=== PATIENT | female | born 1980 | race Caucasian/White ===

== ENCOUNTER 2022-07-22 10:39 | Emergency (ER) | payer BC, SELFPAY ==
--- NOTE | ~2022-07-22 | XR_ITS ---
EXAMINATION: XR foot RT min 3V DATE: 07/22/2022 11:17 INDICATION: Right foot injury. TECHNIQUE: 4 views of right foot were obtained. COMPARISON: None. FINDINGS: Bone alignment normal. No fracture. There is severe osteoarthritis of first metatarsophalan geal joint and mild osteoarthritis of some of the interphalangeal joints.. There is an enthesophyte a t plantar aspect of calcaneal tuberosity. IMPRESSION: 1. 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 Reviewed, dictated and finalized at location A. ERTY UNDERWRITER
--- NOTE | 2022-07-22 10:44 | ED.LOWEXIN ---
HPI - Extremity Injury (Lower) General Chief Complaint: Extremity Injury, Lower Stated Complaint: INJURED R FOOT/ANKLE Time Seen by Provider: 07/22/22 10:43 Source: patient Mode of arrival: ambulatory Limitations: no limitations History of Present Illness HPI Narrative: Shabana is a 42-year-old female patient presenting to clinic today with complaints of right foot/pain. She reports she injured her ankle/foot on July 20 when she was walking on concrete papers and there was a space in between papers and she caught her foot in between 2 pavers and inverted her right foot Related Data Home Medications Medication Instructions Recorded Confirmed olmesartan 40 mg tablet 40 mg PO DAILY 07/22/22 07/22/22 Allergies Allergy/AdvReac Type Severity Reaction Status Date / Time No Known Allergies Allergy Verified 07/22/22 10:53 Review of Systems Review of Systems: Pertinent positives per HPI. Patient denies any fever, chills, rash, headache, visual changes, dizziness, cough, runny nose, sore throat, shortness of breath, chest pain, palpitations, nausea, vomiting, diarrhea, constipation, abdominal pain, or any urinary issues. PMFSH Comments At the time of my signature, I reviewed and agree with the nursing past medical, surgical, social, and family history. There is no relevant family history pertinent to the patient complaint. Exam Narrative: General: Well-developed, well nourished, in no apparent distress Head: Normocephalic, atraumatic. Cardio: Regular rate and rhythm, s1 and s2 normal, no murmur appreciated. Resp: Clear to auscultation bilaterally, no rhonchi, rales, wheezing or rubs. Musculoskeletal: No deformity, tender to palpation over the right lateral foot, grossly normal range of motion, muscle strength strong and equal, peripheral pulse strong, no edema, no cyanosis, normal gait and station Course Course Emergency Course: Portions of this record may have been created with voice recognition software. Level of Care: Express Care Visit Vital Signs Vital signs: Vital Signs Temperature 36.6 C 07/22/22 10:53 Pulse Rate 85 07/22/22 10:53 Respiratory Rate 16 07/22/22 10:53 Blood Pressure 137/88 07/22/22 10:53 Pulse Oximetry 100 07/22/22 10:53 Temperature 36.6 C 07/22/22 10:53 Pulse Rate 85 07/22/22 10:53 Respiratory Rate 16 07/22/22 10:53 Blood Pressure 137/88 07/22/22 10:53 Pulse Oximetry 100 07/22/22 10:53 Vital signs reviewed MDM - Extremity Injury (Lower) MDM Narrative Medical decision making narrative: At the time of visit patient is resting comfortably on the exam table. X-ray was performed of the right foot was negative for any sign of fracture malalignment. I suspect patient has a foot sprain. Supportive measures were discussed with the patient she voiced understanding discharge instructions and agrees to treatment plan. Alexi wrap was given to the patient. Differential Diagnosis Differential diagnosis: Likely other (Foot sprain, foot fracture) Imaging Data Radiologist's impression: [address] [place] [address] XRay Report Signed Patient: Shabana Sanchez : 1980 MR#: [id number] Age/Sex: 42 / F Acct:[id number] Loc: [facility]? ? ADM Date: 07/22/22Attending Dr: Ordering Physician: Martínez Peters APRN Date of Service: 07/22/22 Procedure(s): XR foot RT min 3V Accession Number(s): [id number] cc: Martínez Peters APRN~ EXAMINATION: XR foot RT min 3V DATE: 07/22/2022 11:17 INDICATION: Right foot injury. TECHNIQUE: 4 views of right foot were obtained. COMPARISON: None. FINDINGS: Bone alignment normal. No fracture. There is severe osteoarthritis of first metatarsophalangeal joint and mild osteoarthritis of some of the interphalangeal joints.. There is an enthesophyte at plantar aspect of calcaneal tuberosity. IMPRESSION: 1. Po
[2022-07-22 10:53] VITALS: BP 137/88; PULSE 85; RESP 16; TEMP 36.6; O2SAT 100
== END 2022-07-22 11:36 | disposition home or self-care (01) ==
PROVIDERS: Emergency Provider Nurse Practitioner Family
DX: S93.601A Unspecified sprain of right foot, initial encounter (principal); X50.9XXA Other and unspecified overexertion or strenuous movements or postures, initial encounter; I10 Essential (primary) hypertension; M19.90 Unspecified osteoarthritis, unspecified site
CPT/HCPCS: 73630; 99213; G0463

== ENCOUNTER 2022-08-24 00:52 | Day surgery (SDC) | payer BC, SELFPAY ==
[2022-08-13 12:36] VITALS: BMI 32.7
--- NOTE | 2022-08-23 13:00 | P.PNAN_ITS ---
Anes - Initial Pre Proc Eval Procedure: Operation Date: 08/24/22 10:00 Proposed Procedures p Screening Colonoscopy - Ran Nagy MD Date/Time: 08/23/22 13:00 Surgeon: Ran Nagy MD Pre Op Diagnosis: family hx colon ca Patient Data Age: 42 Gender: F Height: 1.68 m Weight: 92 kg Allergies Allergy/AdvReac Type Severity Reaction Status Date / Time No Known Allergies Allergy Verified 08/24/22 09:06 Home Medications Medication Instructions Recorded Confirmed Type olmesartan 40 mg tablet 40 mg PO DAILY 07/22/22 08/13/22 History fluticasone propionate 50 1 spray intranasal DAILY 08/13/22 08/13/22 History mcg/actuation nasal spray,suspension Patient hx anesthesia problems: none Family hx anesthesia problems: none Results Review: All pre-operative results and documents have been reviewed as part of the pre- operative evaluation. [facility], [facility] Past Medical History Medical History (Updated 08/24/22 @ 09:27 by Ran Nagy MD) Anxiety Hypertension Osteoarthritis Social History Social History Alcohol intake: current Drinks per week: 7 Spiritual care concerns: No Anes - Eval Final PreProcedure Day of Procedure 08/23/22 13:00 Patient weight: obese Heart: regular rate and rhythm Lungs: clear to auscultation Airway: Mallampati scale class II Neurological: alert and oriented Last oral intake: >/= 8 hours ASA classification: III Emergent: no Anesthetic plan: proceed Anesthesia type and monitoring: general GIVS and standard monitoring Results Review: All pre-operative results and documents have been reviewed as part of the pre- operative evaluation. Informed Consent: The patient's anesthetic plan and its attendant risks and benefits were discussed with the patient/family/POA. Questions were solicited and answers provided to the satisfaction of the patient/family/POA.
[2022-08-24 09:07] VITALS: BP 143/100; PULSE 78; RESP 20; TEMP 36.2; O2SAT 99
[2022-08-24] MEDS: LACTATED RINGERS 1,000 ML 150 ML IV CONT (09:21)
--- NOTE | 2022-08-24 09:25 | PM.HPGS ---
History of Present Illness History of Present Illness Consent: Risks, benefits, and alternatives have been discussed and questions answered. Patient agrees to proceed with procedure. Chief complaint: family hx colon ca Narrative: Shabana Sanchez is a 42 year old female Presents for screening colonoscopy. Patient reports that her current weight appetite and bowel movements are normal. Patient denies abdominal pain. She has had no bleeding. Family history is significant that her father has had multiple colon polyps. Her grandfather had colon cancer. Patient presents for initial screening colonoscopy. Review of Systems Review of Systems: Review of systems noncontributory. COUNT INCLUDES THE [facility] Past Medical History Medical History (Updated 08/24/22 @ 09:27 by Ran Nagy MD) Anxiety Hypertension Osteoarthritis Social History Social History Alcohol intake: current Drinks per week: 7 Spiritual care concerns: No Meds Home Medications and Allergies Home Medications Medication Instructions Recorded Confirmed Type olmesartan 40 mg tablet 40 mg PO DAILY 07/22/22 08/13/22 History fluticasone propionate 50 1 spray intranasal DAILY 08/13/22 08/13/22 History mcg/actuation nasal spray,suspension Allergies Allergy/AdvReac Type Severity Reaction Status Date / Time No Known Allergies Allergy Verified 08/24/22 09:06 Vital Signs Vital Signs - 24 hr 08/24/22 09:07 Temperature 97.1 F L Pulse Rate 78 Respiratory Rate 20 Blood Pressure 143/100 H Pulse Oximetry 99 Oxygen Delivery Room Air Exam Narrative: Physical exam reveals patient to be alert. Vital signs stable. HEENT exam is unremarkable. Patient is anicteric. Lungs are clear to auscultation and percussion. Heart is without murmur or extra sounds. Abdomen bowel sounds present soft nontender with no organomegaly. Digital external rectal exam is normal. Assessment and Plan Assessment and plan (1) Family history of colonic polyps: Code(s): Z83.71 - Family history of colonic polyps Status: Acute Assessment and Plan: Patient has a family history of colon polyps in her father and colon cancer in her grandfather. Plan for surveillance colonoscopy now and consider this at 5 year intervals in the future.
[2022-08-24 09:52] VITALS: BP 138/90; PULSE 114; RESP 22; O2SAT 98
[2022-08-24 10:02] VITALS: BP 114/75; PULSE 95; RESP 20; O2SAT 97
[2022-08-24 10:12] VITALS: BP 122/81; PULSE 77; RESP 18; O2SAT 98
== END 2022-08-24 10:29 | disposition home or self-care (01) ==
PROVIDERS: Visit Provider Internal Medicine Gastroenterology
PROC: 0DJD8ZZ Inspection of Lower Intestinal Tract, Via Natural or Artificial Opening Endoscopic (ICD-10-PCS; CPT 45378; principal; 2022-08-24 10:00)
DX: Z12.11 Encounter for screening for malignant neoplasm of colon (principal); Z80.0 Family history of malignant neoplasm of digestive organs; Z83.71 Family history of colonic polyps; I10 Essential (primary) hypertension; E66.9 Obesity, unspecified; Z68.32 Body mass index [BMI] 32.0-32.9, adult
CPT/HCPCS: 45378; J2704; J7120

== ENCOUNTER 2022-09-12 13:58 | Emergency (ER) | payer BC, SELFPAY ==
[2022-09-12] VITALS (18 sets, daily range): BP systolic 124–146; BP diastolic 82–106; PULSE 65–98; RESP 12–19; TEMP 37–37.1; O2SAT 95–100
--- NOTE | ~2022-09-12 | CT_ITS ---
EXAMINATION: CT brain wo con DATE: 09/12/2022 16:35 INDICATION: headache, hypertension . TECHNIQUE: Computed tomography (CT) of the head was performed without intravenous contrast. The mA wa s adjusted according to patient size. Iterative reconstruction technique was employed. The dose-lengt h product was 605.33 mGy-cm. COMPARISON: None. FINDINGS: No acute intracranial hemorrhage or extra-axial fluid collection. No hydrocephalus, mass, or herniation. No acute ischemic infarct. Unremarkable dural venous sinus attenuation. No acute osseous abnormality. The aerated spaces are clear. IMPRESSION: No acute intracranial process. Reviewed, dictated and finalized at location K. ERCIAL STRIPPER
--- NOTE | ~2022-09-12 | XR_ITS ---
EXAMINATION: XR chest 2V 09/12/2022 16:41 INDICATION: Lightheadedness. Hypertension. PROCEDURE: 2 view chest COMPARISON: No prior studies for comparison. FINDINGS: The lungs are clear. The cardiomediastinal silhouette is within normal limits. There are no pleural effusions. There is no pneumothorax suspected. IMPRESSION: 1: NO ACUTE CARDIOPULMONARY DISEASE. Reviewed, dictated and finalized at location B. ANICS HANDYMAN
--- NOTE | 2022-09-12 15:43 | ECG_ITS ---
Measurements Intervals [place] Rate: 75 P: 49 HI: 142 QRS: 37 QRSD: 87 T: 37 QT: 370 QTc: 415 Interpretive Statements SINUS RHYTHM POSSIBLE LEFT ATRIAL ENLARGEMENT [-0.1mV P WAVE IN V1/V2] NONSPECIFIC T-WAVE ABNORMALITY ABNORMAL ECG NO PREVIOUS ECG AVAILABLE FOR COMPARISON Electronically Signed On 09-13-2022 10:02:59 RAMP BOSS by Jacek Palumbo M.D.
[2022-09-12] MEDS: diphenhydrAMINE HCl INJ 50 MG/ML VIAL 25 MG IV PUSH (16:05)
[2022-09-12] MEDS: METOCLOPRAMIDE HCL INJ 10 MG/2 ML VIAL IV PUSH (16:08)
[2022-09-12] MEDS: SODIUM CHLORIDE 0.9% IV 1,000 ML 999 ML IV CONT (16:09)
[2022-09-12 16:21] LABS: Basophils Percent Auto 0.3 % (0.2-1.2); Eosinophils Absolute Auto 0.1 K/mm3 (0-0.3); Eosinophils Percent Auto 0.6 % (0-4.4); Hematocrit 43.1 % (37.0-47.0); Hemoglobin 14.4 g/dL (12.0-15.0); Immature Granulocyte Absolute 0.03 K/mm3 (0.00-0.031); Immature Granulocyte Percent A 0.3 % (0-0.5); Lymphocytes Absolute Auto 2.25 K/mm3 (0.9-3.2); Lymphocytes Percent Auto 22.5 % (18.3-44.2); Mean Corpuscular HGB Conc 33.4 g/dl (32-36); Mean Corpuscular Hemoglobin 29.6 pg (26-34); Mean Corpuscular Volume 88.7 fl (80-100); Mean Platelet Volume 8.4 fl (7.4-10.4); Monocytes Absolute Auto 0.5 K/mm3 (0.1-0.6); Neutrophils Absolute Auto 7.1 K/mm3 (1.3-6.7); Neutrophils Percent Auto 71.3 % (45.5-73.1); Platelet Count Result 334 k/mm3 (150-375); Red Blood Count 4.86 M/mm3 (4.2-5.4); Red Cell Distribution Width 13.1 % (11.5-14.5)
--- NOTE | 2022-09-12 16:21 | ED.HA ---
HPI - Headache General Chief Complaint: Headache Stated Complaint: headache/lightheaded Time Seen by Provider: 09/12/22 15:43 Source: patient Mode of arrival: ambulatory Limitations: no limitations History of Present Illness HPI Narrative: This is a 42 year old female that presents to the ER for lightheadedness today. Reports an associated headache. Reports history of hypertension so she was worried about her heart. Reports she has had some chest pain, but she is currently in the process of moving and the pain is worse with palpation of the area. Denies vision changes, shortness of breath, lower extremity edema, vomiting, numbness, or weakness. Related Data Home Medications Medication Instructions Recorded Confirmed olmesartan 40 mg tablet 40 mg PO DAILY 07/22/22 08/13/22 fluticasone propionate 50 1 spray intranasal DAILY 08/13/22 08/13/22 mcg/actuation nasal spray,suspension Allergies Allergy/AdvReac Type Severity Reaction Status Date / Time No Known Allergies Allergy Verified 08/24/22 09:06 Review of Systems Review of Systems: CONSTITUTIONAL: Denies fever EYES: Denies visual changes CARDIOVASCULAR: Reports chest pain. Denies palpitations, or edema. RESPIRATORY: Denies dyspnea. GASTROINTESTINAL: Denies vomiting MUSCULOSKELETAL: Reports joint pain, and myalgia. NEUROLOGIC: Reports headache. Denies numbness, or weakness. PSYCHIATRIC: Reports anxiety All systems reviewed & are unremarkable except as noted in HPI and below PMFSH Past Medical History Medical History (Updated 09/12/22 @ 17:55 by Amelia Ashley PA-C) Anxiety Hypertension Osteoarthritis Social History Social History Alcohol intake: current Drinks per week: 7 Spiritual care concerns: No Exam Narrative: GENERAL: Well-appearing, well-nourished, and in no acute distress. HEAD: Normocephalic, atraumatic. EYES: PERRLA and EOMI. ENT: Nares clear, no rhinorrhea or epistaxis. Mucous membranes moist. Oropharynx without tonsillar hypertrophy exudate or other lesions. Bilateral TMs pearly miller non-bulging NECK: Supple. No adenopathy or masses. CHEST: Clear to auscultation. No respiratory distress. No wheezes rales or rhonchi HEART: Regular rate and rhythm. No murmur heard. Normal peripheral pulses. EXTREMITIES: Normal range of motion. No edema. Strength equal in bilateral upper and lower extremities (5/5) SKIN: Warm, dry, no rash. NEURO: No focal deficits. Alert and oriented x3. CN II-XII grossly intact PSYCH: Normal mood and affect Course Course Emergency Course: Patient updated on work-up. Resting comfortably. Vital Signs Vital signs: Vital Signs Temperature 98.8 F 09/12/22 14:00 Pulse Rate 98 09/12/22 14:00 Respiratory Rate 18 09/12/22 14:00 Blood Pressure 146/106 H 09/12/22 14:00 Pulse Oximetry 100 09/12/22 14:00 Oxygen Delivery Room Air 09/12/22 14:00 Temperature 98.6 F 09/12/22 15:33 Pulse Rate 76 09/12/22 16:57 Respiratory Rate 13 09/12/22 16:57 Blood Pressure 133/88 09/12/22 16:57 Pulse Oximetry 98 09/12/22 16:57 Oxygen Delivery Room Air 09/12/22 15:33 MDM - Headache MDM Narrative Medical decision making narrative: Patient presents to the ER for lightheadedness and headache today. She is neurologically intact. Her vitals are stable. CBC and metabolic panel without concerning findings. UA without evidence of infection. Noted to have many squamous epithelial cells. Patient is not having any urinary symptoms. Bedside test is negative. CT scan of the brain without acute findings. Patient also reports some chest pain that is worse with palpation of the area. Likely more musculoskeletal in nature. EKG without concerning changes and baseline troponin is negative. Chest x-ray without acute cardiopulmonary abnormality. Patient updated on work-up. Resting comfortably. Instructed to have close follow-up with he
[2022-09-12 16:25] LABS: Appearance Urine Slightly Cloudy (Clear); Bilirubin Urine Negative (Negative); Blood Urine Trace-intact (Negative); Color Urine Yellow (Yellow); Glucose Urine UA Negative (Negative); Ketones Urine Negative (Negative); Leukocyte Esterase Ur Trace LEU/UL (Negative); Nitrate Urine Negative (Negative); Protein Urine Negative (Negative); Specific Grav Ur 1.015 (1.001-1.035); Urobilinogen Urine 0.2 mg/dL (<2.0); pH Urine 8.5 (5.0-9.0)
[2022-09-12 16:32] LABS: Alanine Aminotransferase 27 U/L (6-35); Albumin Level 4.9 g/dL (3.5-5.1); Alkaline Phosphatase 63 U/L (38-126); Anion Gap 6 mmol/L (8-16); Aspartate Amino Transferase 24 U/L (14-36); Bilirubin,Total 0.4 mg/dL (0.2-1.3); Blood Urea Nitrogen 10 mg/dL (7-17); Calcium 9.6 mg/dL (8.4-10.2); Carbon Dioxide 28 mmol/L (22-30); Chloride 104 mmol/L (98-107); Estimated CRCL calculation 90 ml/min; Estimated Glomerular Filt Rate > 60; Glucose 86 mg/dL (65-110); Potassium 3.9 mmol/L (3.4-5.0); Sodium 138 mmol/L (137-145)
[2022-09-12 16:33] LABS: Amorphous Sediment Urine Few; Bacteria Urine Trace /hpf; Squamous Epithelial Cell Urine Many /hpf (Few)
[2022-09-12 16:36] LABS: Add Urine Microscopic? YES
[2022-09-12 17:44] LABS: Troponin I < 0.012 ng/mL (0.000-0.034)
== END 2022-09-12 18:20 | disposition home or self-care (01) ==
PROVIDERS: Emergency Provider Physician Assistant
DX: R51.9 Headache, unspecified (principal); R42 Dizziness and giddiness; F41.9 Anxiety disorder, unspecified; I10 Essential (primary) hypertension; M19.90 Unspecified osteoarthritis, unspecified site
CPT/HCPCS: 36415; 70450; 71046; 80053; 81001; 81025; 84484; 85025; 87086; 87088; 93005; 96361; 96365; 96375; 99284; J0131; J1200; J2765; J7030

== ENCOUNTER 2025-03-26 22:22 | Emergency (ER) | payer BC, SELFPAY ==
[2025-03-26 22:25] VITALS: BP 175/100; PULSE 99; RESP 20; TEMP 36.7; O2SAT 100
--- NOTE | 2025-03-26 22:51 | ED.GENADULT ---
HPI - General Adult General Chief complaint: Unspecified Stated complaint: bat in home Time Seen by Provider: 03/26/25 22:37 History of Present Illness HPI narrative: Patient is a 45-year-old female who presents to the emergency department this evening after finding about in her room yesterday morning. Patient denies any wounds or bites that she is aware of but after go bowling and talking to her friends she was prompted to come to the ED for evaluation. Patient does not believe that she has ever been exposed to rabies in the past and has not received any rabies vaccine. Currently denies any symptoms. Related Data Home Medications ?Medication ?Instructions ?Recorded ?Confirmed ?Last Taken ?Type olmesartan 40 mg tablet 40 mg PO DAILY 07/22/22 08/13/22 Unknown History fluticasone propionate 50 1 spray intranasal DAILY 08/13/22 08/13/22 Unknown History mcg/actuation nasal spray,suspension Allergies Allergy/AdvReac Type Severity Reaction Status Date / Time No Known Allergies Allergy Verified 03/26/25 22:25 Review of Systems Review of Systems: All systems are reviewed and are negative unless stated otherwise in the HPI. [facility] Past Medical History Medical History Anxiety Osteoarthritis Hypertension Social History Social History Alcohol intake: current Drinks per week: 7 Spiritual care concerns: No Exam Narrative: General: Alert, awake, afebrile, in no acute distress. HEENT: PERRL, no rhinorrhea, no post nasal drip, oropharynx clear. Neck: Trachea midline, no JVD, no lymphadenopathy. Cardiovascular: Regular rate and rhythm, no murmurs, rubs or gallops, no peripheral edema. Respiratory: Clear to auscultation bilaterally, no tachypnea, no wheezing, no rhonchi, no rubs, no respiratory distress. Abdomen: Soft, nontender, nondistended, no rebound, no guarding, no peritoneal signs. Musculoskeletal: No joint swelling or deformity, normal muscle tone. Skin: No rashes or petechia, no signs of infection. Psychiatric: Alert and oriented, normal behavior and judgment for situation. Neurological: Alert and oriented to person, place, and time. Follows all commands. No focal deficits, speech is clear and fluent. Course Vital Signs Vital signs: Vital Signs Temperature 98.0 F 03/26/25 22:25 Pulse Rate 99 03/26/25 22:25 Respiratory Rate 20 03/26/25 22: Blood Pressure 175/100 H 03/26/25 22:25 Pulse Oximetry 100 03/26/25 22:25 Oxygen Delivery Room Air 03/26/25 22:25 Temperature 98.0 F 03/26/25 22: Pulse Rate 99 03/26/25 22:25 Respiratory Rate 20 03/26/25 22:25 Blood Pressure 175/100 H 03/26/25 22:25 Pulse Oximetry 100 03/26/25 22:25 Oxygen Delivery Room Air 03/26/25 22:25 Medical Decision Making MDM Narrative Medical decision making narrative: The patient was evaluated by myself in the emergency department. History is obtained from patient who is an independent historian and physical exam was performed. External medical records were reviewed at this time. Differential diagnosis considerations include exposure to rabies, but bite. Patient was administered her rabies immunoglobulin and day 0 rabies vaccine. Provided with scripts for day 3, 7 and 14 and informed that she will be contacted by the center for disease prevention regarding administering the remainder of her vaccine series. Comorbidities impacting this visit include none. I have evaluated and discussed social determinants of health with the patient that could potentially impact subsequent diagnosis and treatment plans. On repeat assessment of the patient, reevaluation revealed that the patient is doing well and is in no acute distress. Patient symptoms have remained stable since she arrived to our emergency department. Repeat vital signs were all reviewed and noted to be stable. Differential diagnosis and treatment plan were discussed with the patient at bedside. Patient agrees with discussion and after shared medical decision making agrees with discharge. All questions were answered to the patient's satisfaction. Patient will follow up with the center for disease prevention in 3 days for her next rabies vaccine. Patient was provided with strict return precautions and instructed to return to the emergency department if any new or worsening symptoms develop. The patient was discharged in stable condition. Vital Signs Vital Signs: Vital Signs Temperature 98.0 F 03/26/25 22:25 Pulse Rate 99 03/26/25 22:25 Respiratory Rate 20 03/26/25 22:25 Blood Pressure 175/100 H 03/26/25 22:25 Pulse Oximetry 100 03/26/25 22:25 Oxygen Delivery Room Air 03/26/25 22:25 Temperature 98.0 F 03/26/25 22:25 Pulse Rate 99 03/26/25 22:25 Respiratory Rate 20 03/26/25 22:25 Blood Pressure 175/100 H 03/26/25 22:25 Pulse Oximetry 100 03/26/25 22:25 Oxygen Delivery Room Air 03/26/25 22:25 Discharge Plan Discharge Clinical Impression: Exposure to rabies Patient Disposition: Home Condition: Improved Instructions: Antibiotic Form Additional Instructions: You were evaluated in the emergency department today after rabies exposure. You received your rabies immunoglobulin and your rabies vaccine today which is days 0. You will be contacted by the center of disease prevention for your Day 3 (03/29/25) Day 7 (04/02/25) and Day 14 (04/09/25) rabies vaccine series. Patient Language: Croatian Prescriptions: No Action olmesartan 40 mg tablet 40 mg PO DAILY fluticasone propionate [Flonase] 50 mcg/actuation [place],Suspension 1 spray INTRANASAL DAILY Rx Instructions: administer into each nostril Follow-up/Referrals: PHYSICIAN NOT ON STAFF,NONSTAFF [Primary Care Provider] - 3 Days Time of Disposition: 22:54
[2025-03-26] MEDS: RABIES VACCINE (RABAVERT) 2.5 UNITS VIAL IM (23:51)
[2025-03-26] MEDS: RABIES IMMUNE GLOBULIN/PF 900 UNITS/3 ML VIAL 1800 UNITS IM (23:52)
== END 2025-03-27 00:17 | disposition home or self-care (01) ==
PROVIDERS: Emergency Provider Emergency Medicine
DX: Z20.3 Contact with and (suspected) exposure to rabies (principal); Z29.14 Encounter for prophylactic rabies immune globulin; Z23 Encounter for immunization; I10 Essential (primary) hypertension; M19.90 Unspecified osteoarthritis, unspecified site
CPT/HCPCS: 90375; 90471; 90472; 90675; 96372; 99283

== ENCOUNTER 2025-04-09 08:47 | Outpatient (RCR) | payer BC, SELFPAY ==
[2025-03-29] MEDS: RABIES VACCINE (RABAVERT) 2.5 UNITS VIAL IM (10:10)
[2025-04-02] MEDS: RABIES VACCINE (RABAVERT) 2.5 UNITS VIAL IM (08:50)
[2025-04-09] MEDS: RABIES VACCINE (RABAVERT) 2.5 UNITS VIAL IM (09:00)
== END 2025-06-27 23:59 | disposition home or self-care (01) ==
LOC: ANHVASCINF 08:47
PROVIDERS: Visit Provider Emergency Medicine
DX: Z20.3 Contact with and (suspected) exposure to rabies (principal); Z29.14 Encounter for prophylactic rabies immune globulin
CPT/HCPCS: 90471; 90675